=== PATIENT | female | born 1955 | race Caucasian/White ===

== ENCOUNTER → 2016-05-28 | Day surgery (SDC) | payer BC ==
[2016-05-25 07:55] VITALS: Ht 162.6 cm; Wt 58.2 kg
[~2016-05-28] VITALS: Ht 162.6 cm; Wt 58.2 kg
[~2016-05-28] MED LIST: ATROPINE SULFATE 0.1 MG/ML 5ML SYR IV PRN; ATV/1 PO; BENZATROPINE PO; BIOTCAP2 PO; BUPIVACAINE/EPINEPHRINE 0.25% 1:200,000 30 ML VIAL ONE; BUPRTAB PO; CAND1TAB17 PO; CEFAZOLIN 2000 MG/60 ML D5W IV SCH; DEXAMETHASONE SOD INJ 4 MG/ML VIAL ONE; DHE IM; EpHEDrine SULFATE INJ 50 MG/ML AMP IV PRN; EpINEphrine INJ 1MG/ML AMP 1 MG/ML AMP ONE; FENTANYL CITRATE INJ 50 MCG/1 ML 2 ML VIAL ONE; HALO5TAB PO; LACTATED RINGER'S 1000ML 1,000 ML IV SCH; LIDOCAINE HCL 2% 2 ML VIAL (20MG/ML) ONE; METHYLPREDNISOLONE ACETATE 80 MG/ML VIAL ONE; MGRSP NAE; MIDAZOLAM HCL 1 MG/ML 2ML VIAL ONE; MULTTAB58 PO; ONDANSETRON INJ 2 MG/ML 2 ML VIAL IV PRN; ONDANSETRON INJ 2 MG/ML 2 ML VIAL ONE; OXYC-57 PO; OXYCODONE/ACETAMINOPHEN 5-325 TAB PO PRN; PROPOFOL IV EMULSION 10 MG/ML 20 ML VIAL IV ONE; ROPIVACAINE 0.5% 5 MG/ML 30 ML VIAL ONE; SODIUM CHLORIDE 0.9% 1000ML 1,000 ML IV SCH; TOPI100T45 PO
--- NOTE | 2016-05-28 11:23 | History & Physical Bridge - [place] ---
H&P Re-Evaluation Bridge Note: I have examined the patient, reviewed the History & Physical and in the interval since the performance of the History & Physical I have noted the following changes of clinical significance: No changes noted
[2016-05-28 13:20] VITALS: TEMP 36.7
--- NOTE | 2016-05-28 13:22 | Discharge Instructions-SurgCtr ---
Discharge Instructions Visit Reason for Visit: Left Shoulder Adhesive Capsulitis Discharge Discharge Diagnosis / Problem: SAME ABOVE Discharge Goals Goal(s): Decrease discomfort, Improve function Activity Recommendations Activity Limitations: as noted below Lifting Limitations: gradually increase as tolerated Exercise/Sports Limitations: gradually increase as tolerated Shower/Bathe: tomorrow Anesthesia . Post Anesthesia Instructions: If you have had General Anesthesia or IV Sedation: * Do not drive today. * Resume driving when surgeon permits. * Do not make important decisions or sign legal documents today. * Call surgeon for: 1. Temperature elevations greater than 101 degrees F. 2. Uncontrollable pain. 3. Excessive bleeding. 4. Persistent nausea and vomiting. 5. Medication intolerance (nausea, vomiting or rash). * For nausea and vomiting use only clear liquids such as: tea, soda, bouillon until nausea subsides, then gradually increase diet as tolerated. * If you have any concerns or questions, call your surgeon's office. If physician is unavailable and it is an emergency, call 911 or go to the nearest emergency room. . Instructions / Follow-Up Instructions / Follow-Up MEDICATIONS: * Resume previous medications unless instructed otherwise by your surgeon. * Always take pain medication on a full stomach or with food to avoid upset stomach. * Do not drink alcohol or drive while taking narcotics. * Ibuprofen or Tylenol may be taken if narcotic not needed. SPECIAL CARE INSTRUCTIONS: __ None _X_ Keep extremity elevated and iced x 48 hours; apply ice 20-30 minutes 8-10 times/day. May remove at night. _X_ Sling (MAY REMOVE AFTER 24 HOURS) __24 hrs/day __ Remove at night __ Shoulder Immobilizer __ 24 hrs/day __ Remove at night _X_ Dressing __ Maintain until seen in office, may shower with plastic over site _X_ Remove dressings in 24-48 hours and then may shower _X_ Cover incisions with band-aids after showering __ Do not remove steri-strips Call physician if chills or temperature rises above 102 degrees or pain unrelieved by prescribed pain medications at . . Diet Recommendations Home Diet: no limitations Fluid Restriction: None Procedures Procedures Performed: Left Shoulder Arthroscopy, Lysis of Adhesions Pending Studies Studies pending at discharge: no Work Instructions Return To Work: 5 days (MAY RETURN SOON WEDNESDAY OR WHEN PAIN IS TOLERABLE ) Lifting Limitations: INCREASE TOLERATED Medical Emergencies . Who to Call and When: Medical Emergencies: If at any time you feel your situation is an emergency, please call 911 immediately. . Non-Emergent Contact Non-Emergency issues call your: Primary Care Provider Call Non-Emergent contact if: you have a fever, temperature is above 101.5 . . "Provider Documentation" section prepared by Thiago Devine.
--- NOTE | 2016-05-28 13:50 | Anesthesia Progress Nt - [facility] ---
Anesthesia Post Op Note Date & Time May 28, 2016 at 13:49 Vital Signs Pain Intensity: 0 Vital Signs Past 12 Hours Date Time Temp Pulse Resp B/P Pulse Ox O2 Delivery O2 Flow Rate FiO2 05/28/16 13:20 36.7 85 16 115/74 96 Room Air 05/28/16 12:25 75 12 100 05/28/16 12:25 75 05/28/16 12:23 113/70 05/28/16 12:20 75 05/28/16 12:20 75 12 100 05/28/16 12:18 114/70 05/28/16 12:15 78 14 100 05/28/16 12:15 78 05/28/16 12:13 106/67 05/28/16 12:10 81 15 100 05/28/16 12:10 81 05/28/16 12:09 78 05/28/16 12:09 77 11 100 05/28/16 12:08 111/67 05/28/16 12:04 80 05/28/16 12:04 79 17 100 05/28/16 12:03 104/60 05/28/16 11:59 79 16 100 05/28/16 11:59 79 05/28/16 11:58 111/66 05/28/16 11:54 75 20 100 05/28/16 11:54 75 05/28/16 11:53 115/73 05/28/16 11:49 77 18 100 05/28/16 11:49 77 05/28/16 11:48 114/72 05/28/16 11:45 81 24 127/78 05/28/16 11:40 78 0 05/28/16 11:35 78 0 05/28/16 11:30 74 0 05/28/16 11:25 76 0 05/28/16 11:20 79 0 05/28/16 10:15 36.4 80 16 104/70 100 Room Air Notes Mental Status: alert / awake / arousable, participated in evaluation Pt Amnestic to Procedure: Yes Nausea / Vomiting: adequately controlled Pain: adequately controlled Airway Patency, RR, SpO2: stable & adequate BP & HR: stable & adequate Hydration State: stable & adequate Anesthetic Complications: no major complications apparent
--- NOTE | 2016-05-28 13:50 | OPERATIVE REPORT ---
DATE OF OPERATION: 05/28/2016 PREOPERATIVE DIAGNOSIS: Adhesive capsulitis of the left shoulder. POSTOPERATIVE DIAGNOSIS: Same. PROCEDURE: Left arthroscopic capsular release and lysis of adhesions with manipulation under anesthesia. SURGEON: Dr. Nabeel Le. DELIVERY TECH: Oliverio Devine PA-C, whose assistance was necessary for positioning the arm and helping with arthroscopic instrumentation. ANESTHESIA: General with a left interscalene nerve block. COMPLICATIONS: None. CONDITION: Stable to PACU. INDICATIONS: Angelica is a pleasant 61-year-old female who presented to my office with tightness of her left shoulder. MRI and clinical examination were diagnostic for adhesive capsulitis of the left shoulder. After failing extensive conservative treatment, she elected to undergo a capsular release. PROCEDURE: On 05/28/2016 she arrived at [facility] for the above procedure. She was seen in the preoperative holding area and the operative extremity was identified and signed. She was given a preoperative antibiotic and a left interscalene nerve block. She was taken back to the operating room, laid on the table in supine position and given basic sedation. The left shoulder was prepped and draped in sterile fashion. Time-out was done and the patient and operative extremity was properly identified. On preoperative physical examination, she only had about 45 degrees of abduction, 20 degrees of external rotation. I had difficulty doing any manipulation. The scope was then put into the posterior portal. Diagnostic arthroscopy showed no cartilage damage to the humeral head or the glenoid. There was a lot of thickness and redness of the rotator interval as well as the middle glenohumeral ligament. The inferior glenohumeral ligament did not look too bad. An anterior portal was made. A shaver and ablator were used to do a complete lysis of adhesions of the entire rotator interval back to the base of the coracoid as well as the middle glenohumeral ligament. The anterior inferior glenohumeral ligament was released and the remainder of the inferior glenohumeral looked okay. The biceps tendon was intact and went through a normal size biceps zach mechanism and care was taken not to disrupt the subscapularis or the axillary nerve. Arthroscopic instruments were removed from the shoulder and manipulation was then done under anesthesia and I was able to get full range of motion of the shoulder. The scope was placed back in. A shaver was used to remove any excess debris and cautery was used to obtain hemostasis. A spinal needle was placed intraarticularly. The arthroscopic instruments were removed. Portal sites were closed with 3-0 nylon. The shoulder was then injected with 80 mg of Depo-Medrol and 5 mL of Marcaine. She was then placed in a soft dressing and regular arm sling. She was then extubated, transferred to a [facility] and taken to the postanesthesia care unit in stable condition. She tolerated the procedure well. I attest to the content of the Intraoperative Record and any orders documented therein. Any exceptio ns are noted below.
[2016-05-28 13:53] VITALS: BP 115/74; PULSE 78; O2SAT 98
--- NOTE | 2016-05-28 15:23 | [facility] Post Operative Brief Note ---
Immediate Operative Summary Operative Date May 28, 2016. Pre-Operative Diagnosis Left Shoulder Adhesive Capsulitis Post-Operative Diagnosis Same Procedure(s) Performed Left Shoulder Arthroscopy, Lysis of Adhesions Surgeon Dr. Le Yard Specialist Surgeon(s) Zaki Devine PA-C Estimated Blood Loss 5ml Findings as above Specimens None Complication(s) None Disposition Recovery Room / PACU
== END | disposition home or self-care (01) ==
LOC: X.SURG 10:05
PROVIDERS: ATTEND Orthopaedic Surgery
DX: M75.02 Adhesive capsulitis of left shoulder (principal); Z98.890 Other specified postprocedural states; N18.9 Chronic kidney disease, unspecified

== ENCOUNTER → 2016-07-30 | Day surgery (SDC) | payer BC ==
[2016-07-29 11:08] VITALS: Ht 162.6 cm; Wt 58.2 kg
[~2016-07-30] VITALS: Ht 162.6 cm; Wt 58.2 kg
[~2016-07-30] MED LIST changes: -ATROPINE SULFATE 0.1 MG/ML 5ML SYR IV PRN; +BUPIVACAINE 0.5 % 5 MG/1 ML MPF 30ML VIAL ONE; +BUPIVACAINE 0.5 % 5 MG/1 ML PF 10ML VIAL ONE; -BUPIVACAINE/EPINEPHRINE 0.25% 1:200,000 30 ML VIAL ONE; -CEFAZOLIN 2000 MG/60 ML D5W IV SCH; -EpHEDrine SULFATE INJ 50 MG/ML AMP IV PRN; -EpINEphrine INJ 1MG/ML AMP 1 MG/ML AMP ONE; +FENTANYL CITRATE INJ 50 MCG/1 ML 2 ML VIAL IV PRN; +LACTATED RINGER'S 1000ML 1,000 ML IV PRN; +LACTATED RINGER'S 1000ML 500 ML IV ONE; -ONDANSETRON INJ 2 MG/ML 2 ML VIAL ONE; -ROPIVACAINE 0.5% 5 MG/ML 30 ML VIAL ONE
[2016-07-30 13:20] VITALS: TEMP 36.6
--- NOTE | 2016-07-30 13:26 | [facility] Post Operative Brief Note ---
Immediate Operative Summary Operative Date Jul 30, 2016. Pre-Operative Diagnosis Left Shoulder Adhesive Capsulitis Post-Operative Diagnosis Same Procedure(s) Performed Left Shoulder Manipulation Under Anesthesia Surgeon Dr. Le Termite Control Technician Surgeon(s) None Estimated Blood Loss 0 mL Findings as above Specimens None Complication(s) None Disposition Recovery Room / PACU
--- NOTE | 2016-07-30 13:38 | Discharge Instructions-SurgCtr ---
Discharge Instructions Date of Service Jul 30, 2016. Visit Reason for Visit: Left Shoulder Adhesive Capsulitis Discharge Discharge Diagnosis / Problem: SAME ABOVE Discharge Goals Goal(s): Decrease discomfort, Improve function Activity Recommendations Activity Limitations: as noted below Lifting Limitations: gradually increase as tolerated Exercise/Sports Limitations: gradually increase as tolerated Shower/Bathe: tomorrow Driving or Machine Use: WHEN PAIN IS TOLERATED Anesthesia . Post Anesthesia Instructions: If you have had General Anesthesia or IV Sedation: * Do not drive today. * Resume driving when surgeon permits. * Do not make important decisions or sign legal documents today. * Call surgeon for: 1. Temperature elevations greater than 101 degrees F. 2. Uncontrollable pain. 3. Excessive bleeding. 4. Persistent nausea and vomiting. 5. Medication intolerance (nausea, vomiting or rash). * For nausea and vomiting use only clear liquids such as: tea, soda, bouillon until nausea subsides, then gradually increase diet as tolerated. * If you have any concerns or questions, call your surgeon's office. If physician is unavailable and it is an emergency, call 911 or go to the nearest emergency room. . Instructions / Follow-Up Instructions / Follow-Up MEDICATIONS: * Resume previous medications unless instructed otherwise by your surgeon. * Always take pain medication on a full stomach or with food to avoid upset stomach. * Do not drink alcohol or drive while taking narcotics. * Ibuprofen or Tylenol may be taken if narcotic not needed. SPECIAL CARE INSTRUCTIONS: __ None _X_ Keep extremity elevated and iced x 48 hours; apply ice 20-30 minutes 8-10 times/day. May remove at night. _X_ Sling (REMOVE TOMORROW) __24 hrs/day __ Remove at night __ Shoulder Immobilizer __ 24 hrs/day __ Remove at night __ Dressing __ Maintain until seen in office, may shower with plastic over site __ Remove dressings in 24-48 hours and then may shower __ Cover incisions with band-aids after showering __ Do not remove steri-strips Call physician if chills or temperature rises above 102 degrees or pain unrelieved by prescribed pain medications at . . Diet Recommendations Home Diet: no limitations Fluid Restriction: None Procedures Procedures Performed: Left Shoulder Manipulation Under Anesthesia Pending Studies Studies pending at discharge: no Work Instructions Return To Work: 3 days (OR WHEN PAIN IS TOLERATED. ) Lifting Limitations: INCREASE TOLERATED Medical Emergencies . Who to Call and When: Medical Emergencies: If at any time you feel your situation is an emergency, please call 911 immediately. . Non-Emergent Contact Non-Emergency issues call your: Primary Care Provider Call Non-Emergent contact if: you have a fever, temperature is above 101.5 . . "Provider Documentation" section prepared by Thiago Devine.
--- NOTE | 2016-07-30 13:40 | Anesthesia Progress Nt - [facility] ---
Anesthesia Post Op Note Date & Time Jul 30, 2016 at 13:40 Vital Signs Pain Intensity: 0 Vital Signs Past 12 Hours Date Time Temp Pulse Resp B/P Pulse Ox O2 Delivery O2 Flow Rate FiO2 07/30/16 13:20 36.6 75 12 100/68 100 Room Air 07/30/16 13:01 69 07/30/16 13:01 69 0 100 07/30/16 13:00 68 07/30/16 13:00 68 0 114/69 100 07/30/16 12:55 68 07/30/16 12:55 69 0 115/67 100 07/30/16 12:54 69 07/30/16 12:54 69 0 100 07/30/16 12:50 111/68 07/30/16 12:49 67 07/30/16 12:49 67 0 100 07/30/16 12:48 68 0 100 07/30/16 12:48 69 07/30/16 12:45 105/64 07/30/16 12:43 69 0 100 07/30/16 12:43 69 07/30/16 12:42 69 07/30/16 12:42 70 0 100 07/30/16 12:41 68 07/30/16 12:41 69 0 100 07/30/16 12:40 107/69 07/30/16 12:36 67 0 100 07/30/16 12:36 68 07/30/16 12:35 107/72 07/30/16 12:32 68 0 100 07/30/16 12:32 68 07/30/16 12:31 71 0 100 07/30/16 12:31 72 07/30/16 12:30 114/71 07/30/16 12:26 72 07/30/16 12:26 72 0 100 07/30/16 12:25 113/73 07/30/16 12:22 66 07/30/16 12:22 66 0 100 07/30/16 12:21 70 18 100 07/30/16 12:21 69 07/30/16 12:20 113/76 07/30/16 12:16 66 07/30/16 12:16 66 21 100 07/30/16 12:15 112/71 07/30/16 12:11 67 07/30/16 12:11 67 0 100 07/30/16 12:10 109/67 07/30/16 12:08 69 07/30/16 12:08 68 8 100 07/30/16 12:07 70 16 100 07/30/16 12:07 70 07/30/16 12:05 111/65 07/30/16 12:02 67 13 100 07/30/16 12:02 67 07/30/16 12:00 106/60 07/30/16 11:57 71 7 100 07/30/16 11:57 70 07/30/16 11:56 71 8 100 07/30/16 11:56 72 07/30/16 11:55 108/66 07/30/16 11:51 70 07/30/16 11:51 69 7 100 07/30/16 11:50 112/65 07/30/16 11:46 71 8 100 07/30/16 11:46 70 07/30/16 11:45 107/71 07/30/16 11:41 72 0 100 07/30/16 11:41 72 07/30/16 11:40 111/70 07/30/16 11:36 77 0 125/71 07/30/16 11:31 0 07/30/16 11:26 0 07/30/16 11:21 0 07/30/16 11:16 0 07/30/16 11:11 0 07/30/16 11:06 0 07/30/16 11:01 0 07/30/16 10:56 0 07/30/16 10:51 0 07/30/16 10:46 0 07/30/16 10:41 0 07/30/16 10:36 0 07/30/16 10:31 0 07/30/16 10:26 0 07/30/16 09:40 36.5 69 16 111/65 100 Room Air Notes Mental Status: alert / awake / arousable, participated in evaluation Pt Amnestic to Procedure: Yes Nausea / Vomiting: adequately controlled Pain: adequately controlled Airway Patency, RR, SpO2: stable & adequate BP & HR: stable & adequate Hydration State: stable & adequate Anesthetic Complications: no major complications apparent Pt doing very well.
[2016-07-30 13:47] VITALS: BP 112/66; PULSE 72; O2SAT 100
--- NOTE | 2016-07-30 14:38 | OPERATIVE REPORT ---
DATE OF OPERATION: 07/30/2016 PREOPERATIVE DIAGNOSIS: Adhesive capsulitis of the left shoulder. POSTOPERATIVE DIAGNOSIS: Same. PROCEDURE: Manipulation under anesthesia, left shoulder. SURGEON: Dr. Nabeel Le. [employer] DISPATCH SUPERVISOR: none ANESTHESIA: Sedation with a left interscalene nerve block. COMPLICATIONS: None. CONDITION: Stable to PACU. INDICATIONS: Angelica is a pleasant 61-year-old female who underwent a left shoulder capsular release a little over 2 months ago. Initially, she was doing fairly well with her shoulder and started to tighten up again. It has become very painful. She was having trouble sleeping at night. She elected to undergo a manipulation under anesthesia. DESCRIPTION OF PROCEDURE: On 07/30/2016 she arrived at [facility] for the above procedure. She was seen in the preoperative holding area and the operative extremity was identified and signed. She was given interscalene nerve block. She was taken back to the operating room, laid on the table in supine position and given basic sedation. Time-out was done and the patient and operative extremity was properly identified. On preoperative physical examination, she had 90 degrees of abduction and 60 degrees of external rotation with the arm adducted by 45 degrees of external rotation with the arm in neutral. Gentle manipulation was done under anesthesia. I was able to get mostly released from the rotator interval. I was able to get full range of motion of her shoulder compared to the contralateral side. I then injected the shoulder with 80 mg of Depo-Medrol and 5 mL of Marcaine. She was then taken to the postanesthesia care unit in stable condition. She tolerated the procedure well. I attest to the content of the Intraoperative Record and any orders documented therein. Any exceptions are noted below. CARSON
== END | disposition home or self-care (01) ==
LOC: X.SURG 09:28
PROVIDERS: ATTEND Orthopaedic Surgery
DX: M75.02 Adhesive capsulitis of left shoulder (principal); N28.9 Disorder of kidney and ureter, unspecified